=== PATIENT | male | born 1980 | race Hispanic/Latino ===

== ENCOUNTER 2018-09-08 19:50 | Emergency (ER) | payer SELFPAY | END 2018-09-08 20:20 | disposition home or self-care (01) | LOC: SCSER 19:50 | DX: Z02.89 Encounter for other administrative examinations (principal); I10 Essential (primary) hypertension; E11.9 Type 2 diabetes mellitus without complications; E78.00 Pure hypercholesterolemia, unspecified; F17.210 Nicotine dependence, cigarettes, uncomplicated | CPT/HCPCS: 93005 ==